=== PATIENT | male | born 1975 | race Caucasian/White ===

== ENCOUNTER 2017-03-24 14:38 | Emergency (ER) | payer OTHER ==
[~2017-03-24] VITALS: Ht 177.8 cm; Wt 80.0 kg
[~2017-03-24 14:38] MED LIST: Z.0.NO CURRENT MEDS
[2017-03-24 14:50] VITALS: BP 117/79; PULSE 46; RESP 18; TEMP 97.6; O2SAT 93
[2017-03-24] MEDS ORDERED: METF500T PO (14:54)
--- NOTE | 2017-03-24 15:38 | PD ---
HPI Chief Complaint: Anxiety Time Seen by Provider: 15:19 Travel History International Travel<30 days: No Contact w/Intl Traveler<30days: No Traveled to known affect area: No History of Present Illness HPI 41-year-old male with recent diagnosis of diabetes this week, A1c 13. He was placed on metformin. Patient has been watching his diet and has started a new exercise regimen. He was on the Internet looking in reading about insulin injections when he became lightheaded, nauseous. [place] presyncopal but did not have syncopal episode. No shortness of breath, chest pain. Patient was unsure whether he took his metformin, so took another dose. He was then unclear whether he was hypoglycemic so came to the ER. Blood glucose per paramedics was in the 160s. PFSH Past Medical History Arthritis: No Asthma: No Autoimmune Disease: No Heart Rhythm Problems: No Cardiovascular Problems: No High Cholesterol: No Chest Pain: No Congestive Heart Failure: No COPD: No Cerebrovascular Accident: No Diabetes: Yes (DM II) Patient Takes Glucophage: Yes Diminished Hearing: No Gastrointestinal Disorders: No GERD: No Glaucoma: No Headaches: No Hepatitis: No Hiatal Hernia: No Hypertension: No Kidney Stones: No Musculoskeletal: No Neurologic: No Reproductive: No Respiratory: No Myocardial Infarction: No Renal Failure: No Seizures: No Sleep Apnea: No Thyroid Disease: No Ulcer: No Past Surgical History Abdominal Surgery: No AICD: No Cardiac Surgery: No Ear Surgery: No Endocrine Surgery: No Eye Surgery: No Genitourinary Surgery: No Gynecologic Surgery: No Neurologic Surgery: No Oral Surgery: No Pacemaker: No Thoracic Surgery: No Other Surgery: No Social History Alcohol Use: Yes (10 BEERS EVERY WEEKEND) Tobacco Use: No Substance Use: No Allergies-Medications (Allergen,Severity, Reaction): Coded Allergies: No Known Allergies (Verified , 06/15/11) Reported Meds & Prescriptions Reported Meds & Active Scripts Active Reported Metformin (Metformin HCl) 500 Mg Tab 500 Mg PO DAILY With a meal No Current Meds (Miscellaneous Medication) Misc Review of Systems Except as stated in HPI: all other systems reviewed are Neg Physical Exam Narrative GENERAL: Well-appearing male in no acute distress SKIN: Focused skin assessment warm/dry. HEAD: Normocephalic. EYES: No scleral icterus. No injection or drainage. ENT: Mucous membranes pink and moist. NECK: Supple CARDIOVASCULAR: Bradycardic with heart rate in the 40s and 50s, regular rhythm. No murmur appreciated. RESPIRATORY: No accessory muscle use. Clear to auscultation. Breath sounds equal bilaterally. GASTROINTESTINAL: Abdomen soft, non-tender, nondistended. MUSCULOSKELETAL: No obvious deformities.No edema. NEUROLOGICAL: Awake and alert. Normal speech. PSYCHIATRIC: Appropriate mood and affect; insight and judgment normal. Data Data Last Documented VS Vital Signs Date Time Temp Pulse Resp B/P Pulse Ox O2 Delivery O2 Flow Rate FiO2 03/24/17 14:50 97.6 46 18 117/79 93 MDM Medical Decision Making Medical Screen Exam Complete: Yes Emergency Medical Condition: Yes Medical Record Reviewed: Yes Differential Diagnosis 41-year-old male with new diagnosis of diabetes here with episode of lightheadedness and dizziness while reading about insulin injections on the Internet. Suspect vasovagal spell, anxiety/panic attack. Differential includes electrolyte abnormality, dehydration, arrhythmia Narrative Course Patient feels normal at this time. Suspect vasovagal spell. Discussed with patient and his . Conservative management discharged home. Diagnosis Primary Impression: Vasovagal episode Additional Instructions: Continue medications as prescribed and follow-up with primary and cardiology as scheduled. Med/Other Pt SpecificInfo: No Change to Meds Disposition: 01 DISCHARGE HOME Condition: Stable Fabiana Flores MD Mar 24, 2017 15:38
== END 2017-03-24 16:23 | disposition home or self-care (01) ==
LOC: NEPD 14:38
DX: R55 Syncope and collapse (principal); E11.9 Type 2 diabetes mellitus without complications; R42 Dizziness and giddiness; R00.1 Bradycardia, unspecified; Z79.899 Other long term (current) drug therapy
CPT/HCPCS: 99283